=== PATIENT | male | born 1930 | race Caucasian/White ===

== ENCOUNTER 2018-06-09 10:26 | Inpatient (IN) ==
[2018-06-09 10:57] LABS: Basophils # 0.1 10*3/uL (0.0-0.2); Basophils % 1.1 % (0.0-0.8); Eosinophils # 0.3 10*3/uL (0.0-0.87); Eosinophils % 6.5 % (0.00-10.9); Hematocrit 40.1 VOL% (42.0-52.0); Hemoglobin 13.7 GM/DL (14.0-18.0); Immature Granulocytes % 0.2 %; Immature Granulocytes Absolute 0.01 #; Lymphocytes # 1.3 10*3/uL (1.4-4.0); Lymphocytes % 28.1 % (21.2-54.2); Mean Corpuscular HGB Conc 34.2 GM/DL (32-36); Mean Corpuscular Hemoglobin 33 PG (27-34); Mean Corpuscular Volume 96.4 FL (87-102); Mean Platelet Volume 11.2 FL (9.6-12.0); Monocytes # 0.3 10*3/uL (0.11-0.8); Monocytes % 7.2 % (1.7-12.7); Neutrophils # 2.6 10*3/uL (1.4-7.4); Neutrophils % 56.9 % (38.7-73.9); Platelet Count 162 T/CUMM (130-400); Red Blood Count 4.16 MC/CUMM (3.8-5.5); Red Cell Distribution Width 12.7 % (9.3-17.3); White Blood Count 4.6 T/CUMM (4-12)
[2018-06-09 11:17] LABS: Albumin 3.6 G/DL (3.4-5.0); Bilirubin,Total 0.5 MG/DL (0.2-1.0); Calcium 8.7 MG/DL (8.5-10.1); Osmolality,Calculated 285.3 MOS/KG (273-304); Potassium 3.8 MMOL/L (3.5-5.1); Total Protein 6.7 G/DL (6.4-8.3)
[2018-06-09 11:40] LABS: Apearance,Urine CLEAR (Clear); Bilirubin,Urine Negative (Negative); Blood, Urine Negative (Negative); Glucose,Urine (UA) Negative (Negative); Ketones,Urine 5 mg/dL (Negative); Mucus,Urine Occasional /LPF (Occasional); Nitrite,Urine Negative (Negative); Protein,Urine Negative; RBC,Urine 5 /HPF (0-4); Squamous Epithelial Cell,Urine Occasional /HPF (0-10); Urine Color Yellow (Yellow); Urine Specific Gravity 1.015 (1.001-1.035); WBC,Urine <1 /HPF (0-6)
[2018-06-09] MEDS ORDERED: INFLUENZA VIRUS VACCINE 0.5 ML SYRINGE IM ONE (14:52)
[2018-06-09] MEDS ORDERED: ONDANSETRON 4 MG/2 ML VIAL IV PRN (15:28)
[2018-06-09] MEDS ORDERED: GLUCAGON 1 MG VIAL IM PRN (15:28)
[2018-06-09] MEDS ORDERED: AZELASTINE NASAL 137 MCG/SPRAY 30 ML BOTTLE BOTH NARES PRN (15:28)
[2018-06-09] MEDS ORDERED: DEXTROSE 50% 25 GM/50 ML VIAL IV PRN (15:28)
[2018-06-09] MEDS: SODIUM CHLORIDE 0.9% 1,000 ML IV SCH (16:57)
[2018-06-09] MEDS: INSULIN REGULAR 100 UNIT/ML SUBCUT SCH ×2 (16:57→21:37)
[2018-06-09] MEDS: ENOXAPARIN 40 MG/0.4 ML SYRINGE SUBCUT SCH (17:10)
[2018-06-09] MEDS: TIMOLOL 0.25% OPH SOLN 5 ML BOTTLE BOTH EYES SCH ×2 (17:11→21:36)
[2018-06-09 17:30] LABS: Troponin I < 0.015 NG/ML (0.00-0.045)
[2018-06-09 19:37] LABS: Apearance,Urine CLEAR (Clear); Bilirubin,Urine Negative (Negative); Blood, Urine Negative (Negative); Glucose,Urine (UA) Negative (Negative); Ketones,Urine 5 mg/dL (Negative); Mucus,Urine Occasional /LPF (Occasional); Nitrite,Urine Negative (Negative); Protein,Urine Negative; RBC,Urine 3 /HPF (0-4); Urine Color Yellow (Yellow); Urine Specific Gravity 1.016 (1.001-1.035); WBC,Urine 1 /HPF (0-6)
[2018-06-09] MEDS: MAGNESIUM GLUCONATE 500 MG TABLET PO SCH (21:34)
[2018-06-09] MEDS: CYCLOBENZAPRINE 10 MG TABLET PO SCH (21:35)
[2018-06-09] MEDS: MULTIVITAMIN (CENTRUM) TABLET PO SCH (21:35)
[2018-06-09] MEDS: LORazepam 1 MG TABLET PO SCH (21:35)
[2018-06-09] MEDS: DONEPEZIL 10 MG TABLET PO SCH (21:35)
[2018-06-09] MEDS: ASPIRIN EC 81 MG TABLET PO SCH (21:35)
[2018-06-09] MEDS: SIMVASTATIN 10 MG TABLET PO SCH (21:35)
[2018-06-09] MEDS: MECLIZINE 25 MG TABLET PO SCH (21:35)
[2018-06-09] MEDS: FLUTICASONE/SALMETEROL 100-50 DISKUS 14 DOSE INH SCH (21:37)
[2018-06-09] MEDS: BIMATOPROST 0.01% OPH SOLN 2.5 ML BOTTLE BOTH EYES SCH (21:37)
[2018-06-09] MEDS: METHOCARBAMOL 500 MG TABLET PO SCH (21:39)
[2018-06-10] MEDS: ACETAMINOPHEN 325 MG TABLET PO PRN (02:45)
[2018-06-10 05:39] LABS: Basophils % 0.7 % (0.0-0.8); Eosinophils # 0.3 10*3/uL (0.0-0.87); Eosinophils % 4.9 % (0.00-10.9); Hematocrit 42.8 VOL% (42.0-52.0); Hemoglobin 14.6 GM/DL (14.0-18.0); Immature Granulocytes % 0.2 %; Immature Granulocytes Absolute 0.01 #; Lymphocytes # 1.2 10*3/uL (1.4-4.0); Lymphocytes % 20.3 % (21.2-54.2); Mean Corpuscular HGB Conc 34.1 GM/DL (32-36); Mean Corpuscular Hemoglobin 33 PG (27-34); Mean Corpuscular Volume 95.5 FL (87-102); Mean Platelet Volume 10.9 FL (9.6-12.0); Monocytes # 0.4 10*3/uL (0.11-0.8); Monocytes % 7.2 % (1.7-12.7); Neutrophils % 66.7 % (38.7-73.9); Platelet Count 185 T/CUMM (130-400); Red Blood Count 4.48 MC/CUMM (3.8-5.5); Red Cell Distribution Width 12.8 % (9.3-17.3)
[2018-06-10] MEDS: SODIUM CHLORIDE 0.9% 1,000 ML IV SCH ×2 (05:41→18:18)
[2018-06-10 05:50] LABS: Albumin 3.7 G/DL (3.4-5.0); Bilirubin,Total 0.6 MG/DL (0.2-1.0); Calcium 8.9 MG/DL (8.5-10.1); Osmolality,Calculated 284.3 MOS/KG (273-304); Potassium 3.8 MMOL/L (3.5-5.1); Risk Ratio 3.9; Total Protein 7.1 G/DL (6.4-8.3); Troponin I < 0.015 NG/ML (0.00-0.045); VLDL CHOLESTEROL 53.8 MG/DL
[2018-06-10] MEDS: INSULIN REGULAR 100 UNIT/ML SUBCUT SCH ×4 (08:15→21:46)
[2018-06-10] MEDS: PANTOPRAZOLE 40 MG TABLET PO SCH (08:37)
[2018-06-10] MEDS: METOPROLOL SUCCINATE XL 25 MG TABLET PO SCH (08:37)
[2018-06-10] MEDS: NIACIN ER 500 MG TABLET PO SCH (08:37)
[2018-06-10] MEDS: MECLIZINE 25 MG TABLET PO SCH ×2 (08:38→21:09)
[2018-06-10] MEDS: CHOLECALCIFEROL 1,000 UNIT TABLET PO SCH (08:38)
[2018-06-10] MEDS: FLUTICASONE/SALMETEROL 100-50 DISKUS 14 DOSE INH SCH ×2 (08:38→21:09)
[2018-06-10] MEDS: amLODIPine 5 MG TABLET PO SCH (08:38)
[2018-06-10] MEDS: TAMSULOSIN 0.4 MG CAPSULE PO SCH (08:38)
[2018-06-10] MEDS: CELECOXIB 200 MG CAPSULE PO SCH (08:38)
[2018-06-10] MEDS: TIMOLOL 0.25% OPH SOLN 5 ML BOTTLE BOTH EYES SCH ×3 (08:38→21:13)
[2018-06-10] MEDS: ENOXAPARIN 40 MG/0.4 ML SYRINGE SUBCUT SCH (15:36)
[2018-06-10] MEDS: ASPIRIN EC 81 MG TABLET PO SCH (21:09)
[2018-06-10] MEDS: DONEPEZIL 10 MG TABLET PO SCH (21:09)
[2018-06-10] MEDS: MAGNESIUM GLUCONATE 500 MG TABLET PO SCH (21:09)
[2018-06-10] MEDS: CYCLOBENZAPRINE 10 MG TABLET PO SCH (21:10)
[2018-06-10] MEDS: FINASTERIDE 5 MG TABLET PO SCH (21:10)
[2018-06-10] MEDS: MULTIVITAMIN (CENTRUM) TABLET PO SCH (21:10)
[2018-06-10] MEDS: LORazepam 1 MG TABLET PO SCH (21:10)
[2018-06-10] MEDS: METHOCARBAMOL 500 MG TABLET PO SCH (21:10)
[2018-06-10] MEDS: SIMVASTATIN 10 MG TABLET PO SCH (21:10)
[2018-06-10] MEDS: BIMATOPROST 0.01% OPH SOLN 2.5 ML BOTTLE BOTH EYES SCH (21:13)
[2018-06-11] MEDS: ACETAMINOPHEN 325 MG TABLET PO PRN (00:02)
[2018-06-11 04:56] LABS: Basophils % 0.9 % (0.0-0.8); Eosinophils # 0.2 10*3/uL (0.0-0.87); Eosinophils % 5.4 % (0.00-10.9); Hematocrit 38.4 VOL% (42.0-52.0); Hemoglobin 12.8 GM/DL (14.0-18.0); Immature Granulocytes % 0.3 %; Immature Granulocytes Absolute 0.01 #; Lymphocytes # 0.9 10*3/uL (1.4-4.0); Lymphocytes % 28.1 % (21.2-54.2); Mean Corpuscular HGB Conc 33.3 GM/DL (32-36); Mean Corpuscular Hemoglobin 32 PG (27-34); Mean Corpuscular Volume 95.5 FL (87-102); Mean Platelet Volume 11.1 FL (9.6-12.0); Monocytes # 0.4 10*3/uL (0.11-0.8); Monocytes % 10.7 % (1.7-12.7); Neutrophils # 1.8 10*3/uL (1.4-7.4); Neutrophils % 54.6 % (38.7-73.9); Platelet Count 151 T/CUMM (130-400); Red Blood Count 4.02 MC/CUMM (3.8-5.5); Red Cell Distribution Width 12.9 % (9.3-17.3); White Blood Count 3.4 T/CUMM (4-12)
[2018-06-11 05:25] LABS: Calcium 8.6 MG/DL (8.5-10.1); Osmolality,Calculated 285.1 MOS/KG (273-304); Potassium 3.7 MMOL/L (3.5-5.1)
[2018-06-11] MEDS: SODIUM CHLORIDE 0.9% 1,000 ML IV SCH ×2 (07:25→21:16)
[2018-06-11] MEDS: INSULIN REGULAR 100 UNIT/ML SUBCUT SCH ×4 (07:48→21:12)
[2018-06-11] MEDS: FLUTICASONE/SALMETEROL 100-50 DISKUS 14 DOSE INH SCH ×2 (09:05→21:12)
[2018-06-11] MEDS: TIMOLOL 0.25% OPH SOLN 5 ML BOTTLE BOTH EYES SCH ×3 (09:05→21:14)
[2018-06-11] MEDS: CHOLECALCIFEROL 1,000 UNIT TABLET PO SCH (09:06)
[2018-06-11] MEDS: MECLIZINE 25 MG TABLET PO SCH ×2 (09:06→21:11)
[2018-06-11] MEDS: CELECOXIB 200 MG CAPSULE PO SCH (09:06)
[2018-06-11] MEDS: cefTRIAXone 1,000 MG in SYRINGE 1 EACH IV SCH (09:06)
[2018-06-11] MEDS: PANTOPRAZOLE 40 MG TABLET PO SCH (09:06)
[2018-06-11] MEDS: METOPROLOL SUCCINATE XL 25 MG TABLET PO SCH (09:06)
[2018-06-11] MEDS: amLODIPine 5 MG TABLET PO SCH (09:06)
[2018-06-11] MEDS: TAMSULOSIN 0.4 MG CAPSULE PO SCH (09:06)
[2018-06-11] MEDS: NIACIN ER 500 MG TABLET PO SCH (09:17)
[2018-06-11] MEDS ORDERED: TUBERCULIN SKIN TEST 0.1 ML SYRINGE INTRADERM ONE (12:00)
[2018-06-11] MEDS: ENOXAPARIN 40 MG/0.4 ML SYRINGE SUBCUT SCH (15:00)
[2018-06-11] MEDS: ASPIRIN EC 81 MG TABLET PO SCH (21:11)
[2018-06-11] MEDS: METHOCARBAMOL 500 MG TABLET PO SCH (21:11)
[2018-06-11] MEDS: FINASTERIDE 5 MG TABLET PO SCH (21:11)
[2018-06-11] MEDS: MAGNESIUM GLUCONATE 500 MG TABLET PO SCH (21:11)
[2018-06-11] MEDS: DONEPEZIL 10 MG TABLET PO SCH (21:11)
[2018-06-11] MEDS: SIMVASTATIN 10 MG TABLET PO SCH (21:11)
[2018-06-11] MEDS: LORazepam 1 MG TABLET PO SCH (21:12)
[2018-06-11] MEDS: CYCLOBENZAPRINE 10 MG TABLET PO SCH (21:12)
[2018-06-11] MEDS: MULTIVITAMIN (CENTRUM) TABLET PO SCH (21:12)
[2018-06-11] MEDS: BIMATOPROST 0.01% OPH SOLN 2.5 ML BOTTLE BOTH EYES SCH (21:14)
[2018-06-12] MEDS: ACETAMINOPHEN 325 MG TABLET PO PRN (01:31)
[2018-06-12 03:34] LABS: Eosinophils # 0.2 10*3/uL (0.0-0.87); Eosinophils % 5.4 % (0.00-10.9); Hematocrit 37.6 VOL% (42.0-52.0); Hemoglobin 12.8 GM/DL (14.0-18.0); Immature Granulocytes % 0.2 %; Immature Granulocytes Absolute 0.01 #; Lymphocytes # 1.4 10*3/uL (1.4-4.0); Lymphocytes % 33.4 % (21.2-54.2); Mean Corpuscular Hemoglobin 32 PG (27-34); Mean Corpuscular Volume 94.5 FL (87-102); Mean Platelet Volume 10.5 FL (9.6-12.0); Monocytes # 0.5 10*3/uL (0.11-0.8); Monocytes % 12.1 % (1.7-12.7); Neutrophils # 1.9 10*3/uL (1.4-7.4); Neutrophils % 47.9 % (38.7-73.9); Platelet Count 157 T/CUMM (130-400); Red Blood Count 3.98 MC/CUMM (3.8-5.5); Red Cell Distribution Width 12.7 % (9.3-17.3)
[2018-06-12 03:58] LABS: Calcium 8.5 MG/DL (8.5-10.1); Osmolality,Calculated 278.5 MOS/KG (273-304); Potassium 3.6 MMOL/L (3.5-5.1)
[2018-06-12] MEDS: POLYETHYLENE GLYCOL POWDER 17 GM PACK PO SCH (11:06)
[2018-06-12] MEDS: FLUTICASONE/SALMETEROL 100-50 DISKUS 14 DOSE INH SCH ×2 (11:06→22:17)
[2018-06-12] MEDS: NIACIN ER 500 MG TABLET PO SCH (11:07)
[2018-06-12] MEDS: cefTRIAXone 1,000 MG in SYRINGE 1 EACH IV SCH (11:07)
[2018-06-12] MEDS: CELECOXIB 200 MG CAPSULE PO SCH (11:08)
[2018-06-12] MEDS: amLODIPine 5 MG TABLET PO SCH (11:08)
[2018-06-12] MEDS: PANTOPRAZOLE 40 MG TABLET PO SCH (11:09)
[2018-06-12] MEDS: TAMSULOSIN 0.4 MG CAPSULE PO SCH (11:09)
[2018-06-12] MEDS: MECLIZINE 25 MG TABLET PO SCH ×2 (11:09→22:16)
[2018-06-12] MEDS: METOPROLOL SUCCINATE XL 25 MG TABLET PO SCH (11:09)
[2018-06-12] MEDS: SODIUM CHLORIDE 0.9% 1,000 ML IV SCH ×2 (11:10→23:46)
[2018-06-12] MEDS: CHOLECALCIFEROL 1,000 UNIT TABLET PO SCH (11:10)
[2018-06-12] MEDS: TIMOLOL 0.25% OPH SOLN 5 ML BOTTLE BOTH EYES SCH ×3 (11:10→22:15)
[2018-06-12] MEDS: ENOXAPARIN 40 MG/0.4 ML SYRINGE SUBCUT SCH (15:58)
[2018-06-12] MEDS: INSULIN REGULAR 100 UNIT/ML SUBCUT SCH ×4 (16:22→22:23)
[2018-06-12] MEDS: BIMATOPROST 0.01% OPH SOLN 2.5 ML BOTTLE BOTH EYES SCH (22:14)
[2018-06-12] MEDS: MAGNESIUM GLUCONATE 500 MG TABLET PO SCH (22:15)
[2018-06-12] MEDS: FINASTERIDE 5 MG TABLET PO SCH (22:15)
[2018-06-12] MEDS: LORazepam 1 MG TABLET PO SCH (22:15)
[2018-06-12] MEDS: MULTIVITAMIN (CENTRUM) TABLET PO SCH (22:15)
[2018-06-12] MEDS: CYCLOBENZAPRINE 10 MG TABLET PO SCH (22:16)
[2018-06-12] MEDS: SIMVASTATIN 10 MG TABLET PO SCH (22:16)
[2018-06-12] MEDS: METHOCARBAMOL 500 MG TABLET PO SCH (22:16)
[2018-06-12] MEDS: DONEPEZIL 10 MG TABLET PO SCH (22:17)
[2018-06-12] MEDS: ASPIRIN EC 81 MG TABLET PO SCH (22:17)
[2018-06-13 03:47] LABS: Basophils % 0.8 % (0.0-0.8); Eosinophils # 0.2 10*3/uL (0.0-0.87); Eosinophils % 6.5 % (0.00-10.9); Hematocrit 37.6 VOL% (42.0-52.0); Hemoglobin 12.8 GM/DL (14.0-18.0); Immature Granulocytes % 0.3 %; Immature Granulocytes Absolute 0.01 #; Lymphocytes # 1.4 10*3/uL (1.4-4.0); Lymphocytes % 39.1 % (21.2-54.2); Mean Corpuscular Hemoglobin 32 PG (27-34); Mean Corpuscular Volume 94.5 FL (87-102); Mean Platelet Volume 10.5 FL (9.6-12.0); Monocytes # 0.4 10*3/uL (0.11-0.8); Neutrophils # 1.5 10*3/uL (1.4-7.4); Neutrophils % 41.3 % (38.7-73.9); Platelet Count 158 T/CUMM (130-400); Red Blood Count 3.98 MC/CUMM (3.8-5.5); Red Cell Distribution Width 12.8 % (9.3-17.3); White Blood Count 3.7 T/CUMM (4-12)
[2018-06-13 04:08] LABS: Calcium 8.4 MG/DL (8.5-10.1); Osmolality,Calculated 280.3 MOS/KG (273-304); Potassium 3.5 MMOL/L (3.5-5.1)
[2018-06-13] MEDS: INSULIN REGULAR 100 UNIT/ML SUBCUT SCH ×4 (09:21→21:41)
[2018-06-13] MEDS: FLUTICASONE/SALMETEROL 100-50 DISKUS 14 DOSE INH SCH ×2 (09:38→21:39)
[2018-06-13] MEDS: POLYETHYLENE GLYCOL POWDER 17 GM PACK PO SCH (09:39)
[2018-06-13] MEDS: amLODIPine 5 MG TABLET PO SCH (09:39)
[2018-06-13] MEDS: NIACIN ER 500 MG TABLET PO SCH (09:39)
[2018-06-13] MEDS: CHOLECALCIFEROL 1,000 UNIT TABLET PO SCH (09:39)
[2018-06-13] MEDS: PANTOPRAZOLE 40 MG TABLET PO SCH (09:39)
[2018-06-13] MEDS: METOPROLOL SUCCINATE XL 25 MG TABLET PO SCH (09:39)
[2018-06-13] MEDS: TAMSULOSIN 0.4 MG CAPSULE PO SCH (09:39)
[2018-06-13] MEDS: CELECOXIB 200 MG CAPSULE PO SCH (09:39)
[2018-06-13] MEDS: MECLIZINE 25 MG TABLET PO SCH ×2 (09:39→21:38)
[2018-06-13] MEDS: TIMOLOL 0.25% OPH SOLN 5 ML BOTTLE BOTH EYES SCH ×3 (09:40→21:37)
[2018-06-13] MEDS ORDERED: MAGNESIUM HYDROXIDE SUSP 30 ML UDCUP PO PRN (09:40)
[2018-06-13] MEDS: cefTRIAXone 1,000 MG in SYRINGE 1 EACH IV SCH (09:40)
[2018-06-13] MEDS: SODIUM CHLORIDE 0.9% 1,000 ML IV SCH (14:17)
[2018-06-13] MEDS: ENOXAPARIN 40 MG/0.4 ML SYRINGE SUBCUT SCH (15:57)
[2018-06-13] MEDS: DONEPEZIL 10 MG TABLET PO SCH (21:37)
[2018-06-13] MEDS: ASPIRIN EC 81 MG TABLET PO SCH (21:37)
[2018-06-13] MEDS: BIMATOPROST 0.01% OPH SOLN 2.5 ML BOTTLE BOTH EYES SCH (21:37)
[2018-06-13] MEDS: MULTIVITAMIN (CENTRUM) TABLET PO SCH (21:37)
[2018-06-13] MEDS: METHOCARBAMOL 500 MG TABLET PO SCH (21:37)
[2018-06-13] MEDS: SIMVASTATIN 10 MG TABLET PO SCH (21:38)
[2018-06-13] MEDS: LORazepam 1 MG TABLET PO SCH (21:38)
[2018-06-13] MEDS: MAGNESIUM GLUCONATE 500 MG TABLET PO SCH (21:38)
[2018-06-13] MEDS: CYCLOBENZAPRINE 10 MG TABLET PO SCH (21:38)
[2018-06-13] MEDS: FINASTERIDE 5 MG TABLET PO SCH (21:38)
[2018-06-14] MEDS: SODIUM CHLORIDE 0.9% 1,000 ML IV SCH ×2 (03:30→16:39)
[2018-06-14] MEDS: INSULIN REGULAR 100 UNIT/ML SUBCUT SCH ×4 (08:39→21:09)
[2018-06-14] MEDS: NIACIN ER 500 MG TABLET PO SCH (08:58)
[2018-06-14] MEDS: TIMOLOL 0.25% OPH SOLN 5 ML BOTTLE BOTH EYES SCH ×3 (08:58→21:06)
[2018-06-14] MEDS: POLYETHYLENE GLYCOL POWDER 17 GM PACK PO SCH (08:59)
[2018-06-14] MEDS: CHOLECALCIFEROL 1,000 UNIT TABLET PO SCH (08:59)
[2018-06-14] MEDS: CELECOXIB 200 MG CAPSULE PO SCH (08:59)
[2018-06-14] MEDS: METOPROLOL SUCCINATE XL 25 MG TABLET PO SCH (08:59)
[2018-06-14] MEDS: TAMSULOSIN 0.4 MG CAPSULE PO SCH (08:59)
[2018-06-14] MEDS: cefTRIAXone 1,000 MG in SYRINGE 1 EACH IV SCH (08:59)
[2018-06-14] MEDS: PANTOPRAZOLE 40 MG TABLET PO SCH (08:59)
[2018-06-14] MEDS: MECLIZINE 25 MG TABLET PO SCH ×2 (08:59→21:03)
[2018-06-14] MEDS: FLUTICASONE/SALMETEROL 100-50 DISKUS 14 DOSE INH SCH ×2 (09:00→21:07)
[2018-06-14] MEDS: amLODIPine 5 MG TABLET PO SCH (09:00)
[2018-06-14] MEDS: ENOXAPARIN 40 MG/0.4 ML SYRINGE SUBCUT SCH (09:03)
[2018-06-14] MEDS: CYCLOBENZAPRINE 10 MG TABLET PO SCH (21:03)
[2018-06-14] MEDS: METHOCARBAMOL 500 MG TABLET PO SCH (21:03)
[2018-06-14] MEDS: LORazepam 1 MG TABLET PO SCH (21:03)
[2018-06-14] MEDS: MAGNESIUM GLUCONATE 500 MG TABLET PO SCH (21:03)
[2018-06-14] MEDS: SIMVASTATIN 10 MG TABLET PO SCH (21:03)
[2018-06-14] MEDS: DONEPEZIL 10 MG TABLET PO SCH (21:03)
[2018-06-14] MEDS: MULTIVITAMIN (CENTRUM) TABLET PO SCH (21:03)
[2018-06-14] MEDS: FINASTERIDE 5 MG TABLET PO SCH (21:03)
[2018-06-14] MEDS: ASPIRIN EC 81 MG TABLET PO SCH (21:03)
[2018-06-14] MEDS: BIMATOPROST 0.01% OPH SOLN 2.5 ML BOTTLE BOTH EYES SCH (21:06)
[2018-06-15] MEDS: SODIUM CHLORIDE 0.9% 1,000 ML IV SCH (05:58)
[2018-06-15] MEDS: INSULIN REGULAR 100 UNIT/ML SUBCUT SCH ×2 (07:30→12:00)
[2018-06-15 07:51] VITALS: BP 106/55
[2018-06-15] MEDS: METOPROLOL SUCCINATE XL 25 MG TABLET PO SCH (08:40)
[2018-06-15] MEDS: NIACIN ER 500 MG TABLET PO SCH (08:41)
[2018-06-15] MEDS: MECLIZINE 25 MG TABLET PO SCH (08:41)
[2018-06-15] MEDS: amLODIPine 5 MG TABLET PO SCH (08:41)
[2018-06-15] MEDS: CHOLECALCIFEROL 1,000 UNIT TABLET PO SCH (08:41)
[2018-06-15] MEDS: CELECOXIB 200 MG CAPSULE PO SCH (08:41)
[2018-06-15] MEDS: ENOXAPARIN 40 MG/0.4 ML SYRINGE SUBCUT SCH (08:41)
[2018-06-15] MEDS: TAMSULOSIN 0.4 MG CAPSULE PO SCH (08:41)
[2018-06-15] MEDS: PANTOPRAZOLE 40 MG TABLET PO SCH (08:41)
[2018-06-15] MEDS: POLYETHYLENE GLYCOL POWDER 17 GM PACK PO SCH (08:41)
[2018-06-15] MEDS: FLUTICASONE/SALMETEROL 100-50 DISKUS 14 DOSE INH SCH (08:42)
[2018-06-15] MEDS: TIMOLOL 0.25% OPH SOLN 5 ML BOTTLE BOTH EYES SCH (10:00)
[2018-06-15] MEDS ORDERED: INFLUENZA VIRUS VACCINE 0.5 ML SYRINGE IM ONE (12:30)
== END 2018-06-15 12:30 | DRG 948 ==
LOC: N.ED 10:26 → N.EDINP 13:15 → SUATTDRO 13:15 → N.2W 13:40 → N.2E 15:50
PROVIDERS: ADMIT Internal Medicine; ATTEND Internal Medicine

== ENCOUNTER 2019-03-18 05:34 | Observation (INO) ==
[2019-03-18 06:21] LABS: Basophils % 0.5 % (0.0-0.8); Eosinophils # 0.3 10*3/uL (0.0-0.87); Eosinophils % 5.2 % (0.00-10.9); Hematocrit 38.9 VOL% (42.0-52.0); Hemoglobin 12.5 GM/DL (14.0-18.0); Immature Granulocytes % 0.3 %; Immature Granulocytes Absolute 0.02 #; Lymphocytes # 1.3 10*3/uL (1.4-4.0); Lymphocytes % 22.5 % (21.2-54.2); Mean Corpuscular HGB Conc 32.1 GM/DL (32-36); Mean Corpuscular Volume 97.3 FL (87-102); Mean Platelet Volume 10.9 FL (9.6-12.0); Monocytes % 7.2 % (1.7-12.7); Neutrophils % 64.3 % (38.7-73.9); Platelet Count 156 T/CUMM (130-400); Red Cell Distribution Width 14.1 % (9.3-17.3)
[2019-03-18 06:26] LABS: INR 0.9; Partial Thromboplastin Time 26.4 SECS (0-40)
[2019-03-18 06:29] LABS: Calcium 8.8 MG/DL (8.5-10.1); Osmolality,Calculated 282.4 MOS/KG (273-304)
[2019-03-18 07:33] LABS: Apearance,Urine CLEAR (Clear); Bilirubin,Urine Negative (Negative); Blood, Urine Negative (Negative); Glucose,Urine (UA) Negative (Negative); Ketones,Urine Negative (Negative); Mucus,Urine Occasional /LPF (Occasional); Nitrite,Urine Negative (Negative); Protein,Urine Negative; RBC,Urine 2 /HPF (0-4); Squamous Epithelial Cell,Urine Occasional /HPF (0-10); Urine Color Amber (Yellow); Urine Specific Gravity 1.027 (1.001-1.035); WBC,Urine 1 /HPF (0-6)
[2019-03-18] MEDS ORDERED: SODIUM CHLORIDE 0.9% 500 ML IV STA (07:36)
[2019-03-18] MEDS ORDERED: ACETAMINOPHEN 325 MG TABLET PO PRN (08:54)
[2019-03-18] MEDS ORDERED: MECLIZINE 25 MG TABLET PO PRN (08:58)
[2019-03-18] MEDS ORDERED: CELECOXIB 200 MG CAPSULE PO PRN (08:58)
[2019-03-18] MEDS ORDERED: AZELASTINE NASAL 137 MCG/SPRAY 30 ML BOTTLE BOTH NARES PRN (08:58)
[2019-03-18] MEDS: ENOXAPARIN 40 MG/0.4 ML SYRINGE SUBCUT SCH (10:54)
[2019-03-18] MEDS: FLUTICASONE/SALMETEROL 100-50 DISKUS 14 DOSE INH SCH ×2 (10:55→21:50)
[2019-03-18] MEDS: METOPROLOL TARTRATE 25 MG TABLET PO SCH (10:56)
[2019-03-18] MEDS: FUROSEMIDE 20 MG TABLET PO SCH (10:56)
[2019-03-18] MEDS: MEMANTINE 10 MG TABLET PO SCH ×2 (10:57→21:50)
[2019-03-18] MEDS: CHOLECALCIFEROL 1,000 UNIT TABLET PO SCH (10:57)
[2019-03-18] MEDS: TAMSULOSIN 0.4 MG CAPSULE PO SCH ×2 (10:57→21:50)
[2019-03-18] MEDS: glipiZIDE 5 MG TABLET PO SCH ×2 (10:57→21:50)
[2019-03-18] MEDS: PANTOPRAZOLE 40 MG TABLET PO SCH (10:57)
[2019-03-18] MEDS: amLODIPine 5 MG TABLET PO SCH (10:57)
[2019-03-18] MEDS: NIACIN ER 500 MG TABLET PO SCH (10:58)
[2019-03-18] MEDS: LISINOPRIL 20 MG TABLET PO SCH (10:58)
[2019-03-18] MEDS ORDERED: ALBUTEROL/IPRATROPIUM 3 ML NEB RESP TX PRN (13:47)
[2019-03-18] MEDS ORDERED: GLUCAGON 1 MG VIAL IM PRN (13:48)
[2019-03-18] MEDS ORDERED: DEXTROSE 50% 25 GM/50 ML VIAL IV PRN (13:48)
[2019-03-18] MEDS: INSULIN REGULAR 100 UNIT/ML SUBCUT SCH ×2 (17:54→21:51)
[2019-03-18] MEDS: DONEPEZIL 10 MG TABLET PO SCH (21:50)
[2019-03-18] MEDS: BETAXOLOL 0.5% BOTH EYES SCH (21:50)
[2019-03-18] MEDS: SIMVASTATIN 10 MG TABLET PO SCH (21:50)
[2019-03-18] MEDS: MAGNESIUM GLUCONATE 500 MG TABLET PO SCH (21:50)
[2019-03-18] MEDS: ASPIRIN EC 81 MG TABLET PO SCH (21:50)
[2019-03-18] MEDS: BIMATOPROST 0.01% OPH SOLN 2.5 ML BOTTLE BOTH EYES SCH (21:50)
[2019-03-18] MEDS: MULTIVITAMIN (CENTRUM) TABLET PO SCH (21:50)
[2019-03-18] MEDS: FINASTERIDE 5 MG TABLET PO SCH (21:50)
[2019-03-19] MEDS: INSULIN REGULAR 100 UNIT/ML SUBCUT SCH ×4 (08:53→22:06)
[2019-03-19] MEDS: CHOLECALCIFEROL 1,000 UNIT TABLET PO SCH (08:54)
[2019-03-19] MEDS: METOPROLOL TARTRATE 25 MG TABLET PO SCH (08:54)
[2019-03-19] MEDS: NIACIN ER 500 MG TABLET PO SCH (08:54)
[2019-03-19] MEDS: LISINOPRIL 20 MG TABLET PO SCH (08:54)
[2019-03-19] MEDS: glipiZIDE 5 MG TABLET PO SCH ×2 (08:54→22:05)
[2019-03-19] MEDS: ENOXAPARIN 40 MG/0.4 ML SYRINGE SUBCUT SCH (08:54)
[2019-03-19] MEDS: PANTOPRAZOLE 40 MG TABLET PO SCH (08:54)
[2019-03-19] MEDS: amLODIPine 5 MG TABLET PO SCH (08:54)
[2019-03-19] MEDS: TAMSULOSIN 0.4 MG CAPSULE PO SCH ×2 (08:54→22:05)
[2019-03-19] MEDS: MEMANTINE 10 MG TABLET PO SCH ×2 (08:55→22:05)
[2019-03-19] MEDS: FLUTICASONE/SALMETEROL 100-50 DISKUS 14 DOSE INH SCH ×2 (08:57→22:06)
[2019-03-19] MEDS: BETAXOLOL 0.5% BOTH EYES SCH ×2 (09:33→22:06)
[2019-03-19] MEDS: MAGNESIUM GLUCONATE 500 MG TABLET PO SCH (22:05)
[2019-03-19] MEDS: SIMVASTATIN 10 MG TABLET PO SCH (22:05)
[2019-03-19] MEDS: DONEPEZIL 10 MG TABLET PO SCH (22:05)
[2019-03-19] MEDS: ASPIRIN EC 81 MG TABLET PO SCH (22:05)
[2019-03-19] MEDS: FINASTERIDE 5 MG TABLET PO SCH (22:05)
[2019-03-19] MEDS: MULTIVITAMIN (CENTRUM) TABLET PO SCH (22:05)
[2019-03-19] MEDS: BIMATOPROST 0.01% OPH SOLN 2.5 ML BOTTLE BOTH EYES SCH (22:06)
[2019-03-19] MEDS: ONDANSETRON 4 MG/2 ML VIAL IV PRN (23:15)
[2019-03-20] MEDS: INSULIN REGULAR 100 UNIT/ML SUBCUT SCH ×4 (08:27→20:48)
[2019-03-20] MEDS: ONDANSETRON 4 MG/2 ML VIAL IV PRN (08:32)
[2019-03-20] MEDS: ENOXAPARIN 40 MG/0.4 ML SYRINGE SUBCUT SCH (08:33)
[2019-03-20] MEDS: METOPROLOL TARTRATE 25 MG TABLET PO SCH ×2 (10:04→20:50)
[2019-03-20] MEDS: TAMSULOSIN 0.4 MG CAPSULE PO SCH ×2 (10:04→20:50)
[2019-03-20] MEDS: MEMANTINE 10 MG TABLET PO SCH ×2 (10:05→20:50)
[2019-03-20] MEDS: PANTOPRAZOLE 40 MG TABLET PO SCH (10:05)
[2019-03-20] MEDS: BETAXOLOL 0.5% BOTH EYES SCH ×2 (10:05→20:48)
[2019-03-20] MEDS: CHOLECALCIFEROL 1,000 UNIT TABLET PO SCH (10:05)
[2019-03-20] MEDS: LISINOPRIL 20 MG TABLET PO SCH (10:05)
[2019-03-20] MEDS: glipiZIDE 5 MG TABLET PO SCH ×2 (10:05→20:50)
[2019-03-20] MEDS: NIACIN ER 500 MG TABLET PO SCH (10:05)
[2019-03-20] MEDS: FLUTICASONE/SALMETEROL 100-50 DISKUS 14 DOSE INH SCH ×2 (10:05→20:50)
[2019-03-20] MEDS: amLODIPine 5 MG TABLET PO SCH (10:05)
[2019-03-20 12:22] LABS: Calcium 9.3 MG/DL (8.5-10.1); Osmolality,Calculated 283.4 MOS/KG (273-304)
[2019-03-20] MEDS ORDERED: METOPROLOL TARTRATE 25 MG TABLET PO ONE (12:37)
[2019-03-20] MEDS: DONEPEZIL 10 MG TABLET PO SCH (20:48)
[2019-03-20] MEDS: MAGNESIUM GLUCONATE 500 MG TABLET PO SCH (20:49)
[2019-03-20] MEDS: SIMVASTATIN 10 MG TABLET PO SCH (20:50)
[2019-03-20] MEDS: MULTIVITAMIN (CENTRUM) TABLET PO SCH (20:50)
[2019-03-20] MEDS: FINASTERIDE 5 MG TABLET PO SCH (20:50)
[2019-03-20] MEDS: ASPIRIN EC 81 MG TABLET PO SCH (20:50)
[2019-03-20] MEDS: BIMATOPROST 0.01% OPH SOLN 2.5 ML BOTTLE BOTH EYES SCH (20:50)
[2019-03-21] MEDS ORDERED: POLYETHYLENE GLYCOL POWDER 17 GM PACK PO SCH (09:00)
[2019-03-21] MEDS: FLUTICASONE/SALMETEROL 100-50 DISKUS 14 DOSE INH SCH (09:26)
[2019-03-21] MEDS: BETAXOLOL 0.5% BOTH EYES SCH (09:26)
[2019-03-21] MEDS: TAMSULOSIN 0.4 MG CAPSULE PO SCH (09:27)
[2019-03-21] MEDS: amLODIPine 5 MG TABLET PO SCH (09:27)
[2019-03-21] MEDS: CHOLECALCIFEROL 1,000 UNIT TABLET PO SCH (09:27)
[2019-03-21] MEDS: LISINOPRIL 20 MG TABLET PO SCH (09:27)
[2019-03-21] MEDS: METOPROLOL TARTRATE 25 MG TABLET PO SCH (09:28)
[2019-03-21] MEDS: glipiZIDE 5 MG TABLET PO SCH (09:28)
[2019-03-21] MEDS: NIACIN ER 500 MG TABLET PO SCH (09:28)
[2019-03-21] MEDS: ENOXAPARIN 40 MG/0.4 ML SYRINGE SUBCUT SCH (09:28)
[2019-03-21] MEDS: FUROSEMIDE 20 MG TABLET PO SCH (09:28)
[2019-03-21] MEDS: INSULIN REGULAR 100 UNIT/ML SUBCUT SCH (09:28)
[2019-03-21] MEDS: MEMANTINE 10 MG TABLET PO SCH (09:28)
[2019-03-21] MEDS: PANTOPRAZOLE 40 MG TABLET PO SCH (09:36)
[2019-03-21 12:13] VITALS: BP 103/51
== END 2019-03-21 15:20 ==
LOC: N.EDINP 05:34 → N.ED 05:34 → SUATTDRO 08:54 → N.TELEN 09:28
PROVIDERS: ADMIT Internal Medicine Cardiovascular Disease; ATTEND Internal Medicine